=== PATIENT | female | born 1960 | race Caucasian/White ===

== ENCOUNTER 2025-04-19 07:53 | Day surgery (SDC) | payer OTHER, SELFPAY ==
[2025-04-19] MEDS: NSS 500 IV (08:20)
[2025-04-19] MEDS: BACTROBAN 2% OINTMENT 0.5 APPLIC NASAL (08:25)
[2025-04-19 08:26] VITALS: BP 133/80
--- NOTE | 2025-04-19 08:30 | W.SUR.PREOP ---
Pre-Operative Surgical Note
-
I have examined this patient prior to the performance of the scheduled procedure.
The patient's condition is unchanged from the time of the current History and
Physical and the patient is able to undergo the scheduled procedure.
[2025-04-19 08:38] VITALS: BMI 33.4
[2025-04-19 08:40] LABS: Hematocrit 38.6 % (37.0-47.0); Hemoglobin 12.6 g/dL (12.0-16.0); Mean Corp Hgb Conc. 32.6 g/dL (33.0-37.0); Mean Corpuscular Hgb 30.5 pg (27.0-31.0); Mean Corpuscular Volume 93.5 fL (81.0-99.0); Mean Platelet Volume 10.1 fL (7.4-10.4); Platelet Count 238 10^3/uL (130-400); Red Blood Cell Count 4.13 10^6/uL (4.20-5.40); White Blood Cell Count 5.1 10^3/uL (4.8-10.8)
[2025-04-19] MEDS: PERIDEX 0.12% ORAL RINSE 15 ML PO (08:44)
[2025-04-19 08:48] LABS: INR 0.85
[2025-04-19 08:49] LABS: APTT 25.2 Sec (23.4-35.0)
[2025-04-19 09:14] LABS: Blood Urea Nitrogen 10 mg/dl (7-17); Calcium 9.9 mg/dl (8.4-10.2); Carbon Dioxide 29 mmol/L (22-30); Chloride 108 mmol/L (98-107); Estimated Creatinine Clearance 100 ml/min; Glucose 78 mg/dl (70-99); Potassium 4.1 mmol/L (3.5-5.1); Sodium 142 mmol/L (135-145); eGFR > 60.00
--- NOTE | 2025-04-19 09:40 | OR.RPT ---
Operative Report
Operative Report
Date of Operation: 04/19/2025
Pre Op Diagnosis: Suspected temporal arteritis
Post Op Diagnosis: Suspected temporal arteritis
Procedure: LEFT temporal artery biopsy
Surgeon: Octavio Holloway III, MD
Packaging Mechanic: Pineda Salgado MD, PGY5
Anesthesia: Sedation/local
Complications: None
Estimated Blood Loss: Less than 5 cc
History and Indications for Procedure: 64-year-old female with symptom constellation concerning for temporal arteritis. We were asked to perform a temporal artery biopsy.
Procedure in Detail: Arely Mills was correctly identified and placed supine on the operating table. After adequate induction of anesthesia the left temporal region was shaved. The left temporal artery was identified with ultrasound guidance.
The temporal artery course was marked and then the temporal region was prepped and draped in the usual sterile fashion. Preoperative antibiotics were administered. A time-out procedure was performed with the nursing and anesthesia staff confirming
the patient's identity as well as nature and laterality of the procedure. Local anesthesia was infiltrated into the tissue under the skin sybil. An incision was made over the marked temporal artery. Careful sharp dissection and electrocautery were
used to dissect down to the temporal artery. Adequate length of specimen was then sharply dissected out and the proximal and distal artery was ligated with silk ties. The intervening segment of artery was then removed after ligating the proximal
and distal ends. The artery segment was identified and then passed off to the back table to be sent to pathology. Hemostasis was then achieved within the wound bed. The wound was irrigated with warm saline solution. The wound was closed in
layers and sterile skin glue was applied. The patient tolerated the procedure well and was taken to the recovery room in good condition.
Attestation: I was present and responsible for the entire procedure.
Signed:
Octavio Holloway III, MD
[facility]
[phone] (cell)
--- NOTE | 2025-04-19 09:42 | W.SUR.POST ---
Surgical Immediate Post Op
Note
Pre Op Diagnosis: Headache
Post Op Diagnosis: Same
Procedure Performed: Left temporal artery biopsy
Primary Surgeon: Jewel
Secondary Surgeons: Damian PGY 5
Anesthesia: Local and sedation
Estimated Blood Loss: Less than 2 cc
Fluids: See anesthesia flowsheet
Drains/Shunts: None
Specimens/Cultures: Left temporal artery biopsy
Doppler/Duplex/Angio (Y/N): Yes
Complications: None
Operative Findings: Successful biopsy
[2025-04-19 09:45] VITALS: BP 103/60; BP 133/80
[2025-04-19 10:00] VITALS: BP 109/67
[2025-04-19 10:15] VITALS: BP 104/59
[2025-04-19 10:25] VITALS: BP 99/60
[2025-04-19 10:40] VITALS: BP 117/63
== END 2025-04-19 11:00 | disposition home or self-care (01) ==
LOC: CATH 07:53
PROVIDERS: ATTENDING PHYSICIAN Surgery Vascular Surgery; OTHER PHYSICIAN Internal Medicine Cardiovascular Disease; PRIMARYCARE PHYSICIAN Physician Assistant Medical
DX: R51.9 Headache, unspecified (principal); E78.5 Hyperlipidemia, unspecified; E03.9 Hypothyroidism, unspecified; K21.9 Gastro-esophageal reflux disease without esophagitis; Z87.891 Personal history of nicotine dependence
CPT/HCPCS: 37609; 88305; 80048; 85027; 85610; 85730; 88313; 93005

== ENCOUNTER 2025-08-31 13:39 | Emergency (ER) | payer OTHER, SELFPAY ==
[2025-08-31] VITALS (18 sets, daily range): BP systolic 119–163; BP diastolic 78–99; BMI 27.8
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
[2025-08-31] MEDS: ZOFRAN 4 MG IV (14:56)
[2025-08-31] MEDS: TORADOL 15 MG IV (14:57)
--- NOTE | 2025-09-01 09:18 | W.PN.UPDATE ---
Update Note
Progress Note Update
Perkins texted by Dr. Sullivan re this patient. She has a L distal radius fx and underwent closed reduction by Dr. Sullivan. Told she has not NV deficits. I was hoping to do her surgery Tuesday but she is on multiple medications and has several significant
medical problems, including cardiac issues for which she sees Dr. Beck. So will need preop clearance and cannot be done Tuesday but rather later in week. I had my office call her to set all this up but she was upset that her sx would not be
performed first thing Tuesday and said she would call back if she wanted to proceed with care with me. We must without questin do the right thing here and delaying the sx a bit and getting preop clearance is the best treatment for the patient. If
she were healthier we could proceed tomorrow AM, but in my opinion this would not be the standard of care. So bottom line is the ball is in her court as far as if she wants to proceed with care from me. She knows/has been informed that she has a
serious problem that requires surgery this week
== END 2025-08-31 17:03 | disposition home or self-care (01) ==
LOC: EMR 13:39
PROVIDERS: EMERGENCY PHYSICIAN Emergency Medicine; FAMILY PHYSICIAN Family Medicine Adult Medicine
DX: S52.532A Colles' fracture of left radius, initial encounter for closed fracture (principal); S60.212A Contusion of left wrist, initial encounter; S80.02XA Contusion of left knee, initial encounter; S40.811A Abrasion of right upper arm, initial encounter; M25.552 Pain in left hip; M25.562 Pain in left knee; V18.0XXA Pedal cycle driver injured in noncollision transport accident in nontraffic accident, initial encounter; Y93.55 Activity, bike riding; Y92.410 Unspecified street and highway as the place of occurrence of the external cause; Z91.018 Allergy to other foods
CPT/HCPCS: 25605; 99285; 96374; 96375; 99152; 73080; 73100; 73110; 73502; 73564